=== PATIENT | male | born 1965 | race African-American/Black ===

== ENCOUNTER → 2017-06-20 | Day surgery (SDC) | payer OTHER ==
[~2017-06-20] MED LIST: CARVEDILOL6.25 MG PO; DIGOXIN125 MCG PO; ELIQUIS PO; FENTANYL CITRATE/PF 100MCG/2 ML INJ ONE; FUROSEMIDE80 MG PO; LEVOTHYROXINE50 MCG PO; LIDOCAINE HCL 2% LOCAL INJ 5 ML SDV VIAL INJ ONE; LISINOPRIL2.5 MG PO; MIDAZOLAM HCL 2 MG/2 ML VIAL ONE; OMEPRAZOLE20 MG PO; POTASSIUM CHLO20 ME1 PO; PROPOFOL IV EMULSION 10 MG/ML 50 ML VIAL ONE; SIMETHICONE 40 MG/0.6 ML BTL ONE; TAMSULOSIN HCL0.4 MG PO; ZOCOR20 MG PO
== END | disposition home or self-care (01) ==
LOC: OR 07:21
PROVIDERS: ATTEND Internal Medicine Gastroenterology
DX: Z12.11 Encounter for screening for malignant neoplasm of colon (principal); K57.30 Diverticulosis of large intestine without perforation or abscess without bleeding; K64.8 Other hemorrhoids; K21.9 Gastro-esophageal reflux disease without esophagitis; I11.0 Hypertensive heart disease with heart failure; I50.9 Heart failure, unspecified; I48.91 Unspecified atrial fibrillation; I83.90 Asymptomatic varicose veins of unspecified lower extremity; E03.9 Hypothyroidism, unspecified; Z01.810 Encounter for preprocedural cardiovascular examination; Z79.02 Long term (current) use of antithrombotics/antiplatelets; Z79.01 Long term (current) use of anticoagulants; Z68.39 Body mass index [BMI] 39.0-39.9, adult; Z95.810 Presence of automatic (implantable) cardiac defibrillator
CPT/HCPCS: 93005; G0121; J2001; J2250; 45378

== ENCOUNTER → 2020-02-04 | Day surgery (SDC) | payer OTHER ==
[2020-01-30 10:33] LABS: BASOPHILS % 0.2 % (0.0-1.0); EOSINOPHILS % 0.2 % (0.0-6.0); HEMATOCRIT 40.9 % (38.2-49.6); LYMPHOCYTES # (AUTO) 0.6 (1.0-3.2); LYMPHOCYTES % 7.9 % (18.0-39.1); MEAN CORPUSCULAR HEMOGLOBIN 28.1 pg (28-32); MEAN CORPUSCULAR HGB CONC 31.8 g/dL (31-35); MEAN CORPUSCULAR VOLUME 88.5 fL (81-99); MONOCYTES # (AUTO) 0.9 (0.2-0.8); MONOCYTES % 11.4 % (4.4-11.3); NEUTROPHILS # (AUTO) 6.5 (2.1-6.9); NEUTROPHILS % 80.2 % (38.7-80.0); PLATELET COUNT 143 x10e3/uL (140-360); RED BLOOD COUNT 4.62 x10e6/uL (4.3-5.7); RED CELL DISTRIBUTION WIDTH 14.1 % (11.7-14.4)
[2020-01-30 10:53] LABS: ALBUMIN 4.2 g/dL (3.5-5.0); ANION GAP 13.9 mmol/L (8-16); CALCIUM 9.4 mg/dL (8.4-10.2); CREATININE, SERUM 1.75 mg/dL (0.72-1.25); POTASSIUM 3.9 mmol/L (3.5-5.1)
[~2020-02-04] VITALS: Ht 172.7 cm; Wt 117.9 kg
[~2020-02-04] MED LIST changes: +ALPRAZOLAM 0.5 MG TAB ONE; +AMIODARONE HCL200 MG PO; +CARVEDILOL12.5 MG PO; +DIPHENHYDRAMINE HCL 25 MG CAP ONE; +ELIQUIS5 MG PO; +HEPARIN SOD/SOD CHLORIDE 2,000 ML ONE; +IOPAMIDOL 370 MG/ML 200 ML INFUS..BTL INJ ONE; +LIDOCAINE HCL 2% LOCAL 20 ML VIAL ONE; -LIDOCAINE HCL 2% LOCAL INJ 5 ML SDV VIAL INJ ONE; -PROPOFOL IV EMULSION 10 MG/ML 50 ML VIAL ONE; -SIMETHICONE 40 MG/0.6 ML BTL ONE; +SIMVASTATIN40 MG PO; +SODIUM CHLORIDE 0.9% 1000ML 1,000 ML ONE; +TORSEMIDE100 MG PO; +VERAPAMIL HCL 2.5 MG/ML 2 ML VIAL ONE
[2020-02-04 13:11] VITALS: BP 122/83
[2020-02-04 13:15] VITALS: BP 130/80
--- NOTE | 2020-02-04 13:15 | NUR ---
1315 RADIAL Compression removal: Initial Cuff volume 13 cc 1315p -3cc Removed No hematoma/bleeding noted with normal neurovascular function. 1330p -5cc Removed No hematoma/ bleeding noted with normal neurovascular function. 1345p -5cc Removed No hematoma/bleeding noted with normal neurovascular function. . Air removal completed. Stasis achieved sterile 2x2,Tegaderm, Coban dressing No hematoma, bleeding noted with normal neurovascular function. . Pt instructed on POC. Ds/Rn
--- NOTE | 2020-02-04 13:15 | NUR ---
1315RECIEVING NOTE CCL RECOVERY NOTE: pt to room #10,bedside report received from Caden LEON. Alert oriented and appropriate, PERRLA, respirations even and unlabored to room air. Pulses x4 extremities equal and strong. Pedal pulses PT/DP X4 . Cap fill brisk < 3 sec. Tr band air removal started,. Skin warm and dry integrity appears D/I. IV 20g to left ac, presents healthy w/o s/s of infiltration or complaint. Abdomen soft and supple. pt offered toileting, denies need to urinate or defecate. No personal affects with patient. Family at BS. Pt and family verbalizes understanding of POC. Currently w/o complaint of pain or need. ds/rn
[2020-02-04 13:30] VITALS: BP 132/92
[2020-02-04 13:45] VITALS: BP 125/67
--- NOTE | 2020-02-04 13:49 | Operative Report ---
DATE OF PROCEDURE: 02/04/2020 SURGEON: Abundio Alvarez MD INDICATION: Coronary artery disease, angina, congestive heart failure, abnormal stress test. PROCEDURES PERFORMED: 1. Ultrasound-guided access in the right radial artery with sheath placement. 2. Left heart catheterization, selective coronary angiography. 3. Conscious sedation, 35 minutes. 4. Deployment of right wrist TR band. COMPLICATIONS: None. RECOMMENDATIONS: Medical therapy. DESCRIPTION OF PROCEDURE: Access was obtained in the right radial artery using ultrasound guidance. A 5-Martiniquais sheath was placed. Coronary angiography demonstrated diffuse coronary artery disease, only 10% to 20% luminal irregularities in all vessels. No critical stenosis or occlusions were noted. LV end-diastolic pressure was normal. No gradient across aortic valve. Wire and guide sheath removed. TR band applied. The patient discharged home same day. Abundio Alvarez MD [facility] /[id number]
[2020-02-04 14:00] VITALS: BP 118/80
--- NOTE | 2020-02-04 14:00 | NUR ---
1400pm PATIENT MEETS DISCHARGE CRITERIA: Rt TR band assessed for s/s of complication and presence of hematoma. Skin warm, dry, no discolor, and pulses present. IV removed from left ac. Distal tip appears intact. VS WNL. Pt denies pain, sob, or need at this time. Family at BS. Review of discharge paperwork and follow up instructions. verbalized understanding. Pt to wheelchair and transported to front of hospital. Transferred to private vehicle under own strength w/o incident with DC paperwork in hand. - ds/rn
== END ==
LOC: CATH LAB 11:01
PROVIDERS: ATTEND Internal Medicine Interventional Cardiology
DX: I25.118 Atherosclerotic heart disease of native coronary artery with other forms of angina pectoris (principal); R94.39 Abnormal result of other cardiovascular function study; I48.0 Paroxysmal atrial fibrillation; I25.2 Old myocardial infarction; I11.0 Hypertensive heart disease with heart failure; I50.20 Unspecified systolic (congestive) heart failure; Z01.812 Encounter for preprocedural laboratory examination; Z11.59 Encounter for screening for other viral diseases; Z68.41 Body mass index [BMI] 40.0-44.9, adult; Z95.810 Presence of automatic (implantable) cardiac defibrillator; Z82.49 Family history of ischemic heart disease and other diseases of the circulatory system
CPT/HCPCS: 36415; 76937; 80053; 85025; 93454; C1769; C1887; J2001; J2250; J3010; J7030; Q9967; U0002; 99152

== ENCOUNTER 2021-09-10 10:46 | Observation (INO) | payer MEDICARE ==
[~2021-09-10] VITALS: Ht 172.7 cm; Wt 120.2 kg
[~2021-09-10 10:46] MED LIST changes: -ALPRAZOLAM 0.5 MG TAB ONE; -DIPHENHYDRAMINE HCL 25 MG CAP ONE; -FENTANYL CITRATE/PF 100MCG/2 ML INJ ONE; -HEPARIN SOD/SOD CHLORIDE 2,000 ML ONE; -IOPAMIDOL 370 MG/ML 200 ML INFUS..BTL INJ ONE; -LIDOCAINE HCL 2% LOCAL 20 ML VIAL ONE; -MIDAZOLAM HCL 2 MG/2 ML VIAL ONE; -SODIUM CHLORIDE 0.9% 1000ML 1,000 ML ONE; +SPIRONOLACTONE25 MG PO; -VERAPAMIL HCL 2.5 MG/ML 2 ML VIAL ONE
[2021-09-10] MEDS ORDERED: SODIUM CHLORIDE FLUSH 10 ML SYR IV PRN (11:30)
[2021-09-10] MEDS ORDERED: ASPIRIN 325 MG TAB PO ONE (11:30)
[2021-09-10 11:36] LABS: BASOPHILS % 0.5 % (0.0-1.0); EOSINOPHILS % 0.7 % (0.0-6.0); HEMOGLOBIN 10.5 g/dL (14.0-18.0); LYMPHOCYTES # (AUTO) 1.1 (1.0-3.2); LYMPHOCYTES % 19.4 % (18.0-39.1); MEAN CORPUSCULAR HEMOGLOBIN 26.8 pg (28-32); MEAN CORPUSCULAR VOLUME 89.3 fL (81-99); MONOCYTES # (AUTO) 0.8 (0.2-0.8); MONOCYTES % 15.2 % (4.4-11.3); NEUTROPHILS # (AUTO) 3.5 (2.1-6.9); NEUTROPHILS % 63.8 % (38.7-80.0); PLATELET COUNT 219 x10e3/uL (140-360); RED BLOOD COUNT 3.92 x10e6/uL (4.3-5.7); RED CELL DISTRIBUTION WIDTH 14.6 % (11.7-14.4)
[2021-09-10 11:49] LABS: ALBUMIN 3.9 g/dL (3.5-5.0); ALBUMIN/GLOBULIN RATIO 0.9 (0.8-2.0); ANION GAP 12.9 mmol/L (8-16); CALCIUM 9.5 mg/dL (8.4-10.2); CREATININE, SERUM 1.51 mg/dL (0.72-1.25); POTASSIUM 3.9 mmol/L (3.5-5.1)
[2021-09-10 11:55] LABS: INR 1.13; PARTIAL THROMBOPLASTIN TIME 30.8 seconds (23.8-35.5); PROTHROMBIN TIME 15.5 seconds (11.9-14.5)
[2021-09-10 13:28] LABS: AMPHETAMINES SCREEN,URINE NEGATIVE (NEGATIVE); BENZODIAZEPINES SCREEN,URINE NEGATIVE (NEGATIVE); PHENCYCLIDINE SCREEN,URINE NEGATIVE (NEGATIVE)
[2021-09-10] MEDS ORDERED: ASPIRIN 81 MG CHEW TAB PO ONE (14:00)
[2021-09-10] MEDS ORDERED: GLIMEPIRIDE1 MG PO (14:44)
[2021-09-10 16:29] VITALS: BP 114/88
[2021-09-10 16:33] VITALS: BP 114/88
[2021-09-10 16:59] VITALS: BP 114/88
[2021-09-10 19:19] LABS: CREATINE KINASE MB 1.3 ng/mL (0-5.0)
[2021-09-10 20:23] VITALS: BP 96/68
[2021-09-10 21:00] VITALS: BP 103/70
[2021-09-10] MEDS ORDERED: SIMVASTATIN 40 MG TAB PO SCH (21:00)
[2021-09-11 01:19] VITALS: BP 124/91
[2021-09-11 04:25] LABS: BASOPHILS % 0.4 % (0.0-1.0); EOSINOPHILS # (AUTO) 0.1 (0.0-0.4); EOSINOPHILS % 1.3 % (0.0-6.0); HEMATOCRIT 32.8 % (38.2-49.6); LYMPHOCYTES # (AUTO) 1.4 (1.0-3.2); LYMPHOCYTES % 24.7 % (18.0-39.1); MEAN CORPUSCULAR HEMOGLOBIN 26.7 pg (28-32); MEAN CORPUSCULAR HGB CONC 30.5 g/dL (31-35); MEAN CORPUSCULAR VOLUME 87.7 fL (81-99); MONOCYTES # (AUTO) 0.8 (0.2-0.8); MONOCYTES % 14.7 % (4.4-11.3); NEUTROPHILS # (AUTO) 3.2 (2.1-6.9); NEUTROPHILS % 58.7 % (38.7-80.0); PLATELET COUNT 202 x10e3/uL (140-360); RED BLOOD COUNT 3.74 x10e6/uL (4.3-5.7); RED CELL DISTRIBUTION WIDTH 14.3 % (11.7-14.4)
[2021-09-11 04:45] LABS: ALBUMIN 3.6 g/dL (3.5-5.0); ALBUMIN/GLOBULIN RATIO 0.9 (0.8-2.0); ANION GAP 12.9 mmol/L (8-16); CALCIUM 8.8 mg/dL (8.4-10.2); CREATININE, SERUM 1.26 mg/dL (0.72-1.25); POTASSIUM 3.9 mmol/L (3.5-5.1)
[2021-09-11 05:04] LABS: CREATINE KINASE MB 1.4 ng/mL (0-5.0)
[2021-09-11 05:05] VITALS: BP 120/74
[2021-09-11] MEDS ORDERED: LEVOTHYROXINE SODIUM 50 MCG TAB PO SCH (06:00)
[2021-09-11 07:36] VITALS: BP 120/74
[2021-09-11 08:02] VITALS: BP 119/60
[2021-09-11] MEDS: GLIMEPIRIDE 2 MG TAB PO SCH ×2 (08:33→18:03)
[2021-09-11] MEDS: SPIRONOLACTONE 25 MG TAB PO SCH ×2 (08:35→17:00)
[2021-09-11] MEDS: APIXABAN 5 MG TABLET PO SCH ×2 (08:35→18:03)
[2021-09-11] MEDS: CARVEDILOL 12.5 MG TAB PO SCH ×2 (08:35→17:00)
[2021-09-11] MEDS ORDERED: PANTOPRAZOLE SOD 40 MG TABEC PO SCH (09:00)
[2021-09-11] MEDS ORDERED: DIGOXIN 0.125 MG TAB PO SCH (09:00)
[2021-09-11] MEDS ORDERED: TAMSULOSIN HCL 0.4 MG CAP PO SCH (09:00)
[2021-09-11] MEDS ORDERED: TORSEMIDE 10 MG TAB PO SCH (09:00)
[2021-09-11 11:18] VITALS: BP 116/76
[2021-09-11 15:20] VITALS: BP 102/69
[2021-09-11 15:36] LABS: CREATINE KINASE MB 1.6 ng/mL (0-5.0)
== END 2021-09-11 20:14 | disposition home or self-care (01) ==
LOC: ER 10:52 → ERHOLD 13:58 → MED/SURG 16:25
PROVIDERS: ADMIT Internal Medicine; ATTEND Internal Medicine
DX: I11.0 Hypertensive heart disease with heart failure (principal); I50.22 Chronic systolic (congestive) heart failure; N40.0 Benign prostatic hyperplasia without lower urinary tract symptoms; E78.5 Hyperlipidemia, unspecified; E11.9 Type 2 diabetes mellitus without complications; Z90.49 Acquired absence of other specified parts of digestive tract; Z95.810 Presence of automatic (implantable) cardiac defibrillator; I49.3 Ventricular premature depolarization; Z20.822 Contact with and (suspected) exposure to COVID-19
CPT/HCPCS: 36415 ×2; 71045; 80053 ×2; 80307; 82550 ×2; 82553 ×2; 82948 ×2; 84484 ×2; 85025 ×2; 85610; 85730; 93005; 93306; 94760; 94799; 99284; G0378 ×2; S0164; U0002